=== PATIENT | male | born 1980 | race Two or more races ===

== ENCOUNTER 2018-08-04 00:07 | Emergency (ER) | payer OTHER ==
[~2018-08-04] VITALS: Ht 180.3 cm; Wt 103.9 kg
[2018-08-04 00:10] VITALS: BP 145/95
== END 2018-08-04 01:18 | disposition home or self-care (01) ==
LOC: ED 01:12
DX: S01.01XA Laceration without foreign body of scalp, initial encounter (principal); M54.2 Cervicalgia; V40.5XXA Car driver injured in collision with pedestrian or animal in traffic accident, initial encounter; Y93.89 Activity, other specified; Y99.8 Other external cause status; Y92.89 Other specified places as the place of occurrence of the external cause; F17.200 Nicotine dependence, unspecified, uncomplicated
CPT/HCPCS: 99283